=== PATIENT | male | born 1955 | race Caucasian/White ===

== ENCOUNTER 2020-01-29 08:42 | Inpatient (IN) | payer MEDICARE, OTHER ==
[~2020-01-29] VITALS: Ht 182.9 cm; Wt 78.9 kg
[2020-01-29] MEDS ORDERED: SODIUM CHLORIDE 0.9% 1000ML 1,000 ML IV STA ×2 (09:15→09:48)
[2020-01-29 09:40] LABS: BASOPHILS # (AUTO) 0.1 (0.0-0.1); BASOPHILS % 0.2 % (0.0-1.0); HEMATOCRIT 31.6 % (38.2-49.6); HEMOGLOBIN 10.1 g/dL (14.0-18.0); LYMPHOCYTES # (AUTO) 0.8 (1.0-3.2); LYMPHOCYTES % 3.2 % (18.0-39.1); MEAN CORPUSCULAR HEMOGLOBIN 32.1 pg (28-32); MEAN CORPUSCULAR VOLUME 100.3 fL (81-99); MONOCYTES # (AUTO) 0.9 (0.2-0.8); MONOCYTES % 3.8 % (4.4-11.3); NEUTROPHILS # (AUTO) 22.1 (2.1-6.9); NEUTROPHILS % 90.6 % (38.7-80.0); PLATELET COUNT 172 x10e3/uL (140-360); RED BLOOD COUNT 3.15 x10e6/uL (4.3-5.7); RED CELL DISTRIBUTION WIDTH 17.1 % (11.7-14.4)
[2020-01-29] MEDS ORDERED: DEXTROSE 50% SYRINGE 50 ML IV STA (09:41)
[2020-01-29] MEDS ORDERED: DEXTROSE 50% SYRINGE 50 ML IV ONE (09:48)
[2020-01-29] MEDS ORDERED: CEFEPIME HCL 1 GM VIAL IV SCH (10:00)
--- NOTE | 2020-01-29 10:17 | Diagnostic Imaging Report ---
EXAMINATION: CHEST SINGLE (PORTABLE) INDICATION: Fall COMPARISON: None FINDINGS: LINES/TUBES:EKG leads overlie the chest. LUNGS:The lung volumes are low. Bibasilar patchy opacities silhouette the hemidiaphragms. There is perihilar fullness and indistinctness of the pulmonary vasculature. PLEURA:Small bilateral pleural effusions. No pneumothorax. MEDIASTINUM:The heart is enlarged. BONES/SOFT TISSUES:No acute osseous injury. ABDOMEN:No free air under the diaphragm. IMPRESSION: Cardiomegaly, pulmonary interstitial edema, and small bilateral pleural effusions. Bibasilar patchy opacities, more likely subsegmental atelectasis than superimposed aspiration or pneumonia. Signed by: Carol Hillman MD on 01/29/2020 10:13 AM
[2020-01-29 11:05] LABS: ALBUMIN 1.9 g/dL (3.5-5.0); ALBUMIN/GLOBULIN RATIO 0.4 (0.8-2.0); ANION GAP 10.1 mmol/L (8-16); CALCIUM 7.6 mg/dL (8.4-10.2); CREATININE, SERUM 3.67 mg/dL (0.72-1.25)
[2020-01-29 11:06] LABS: POTASSIUM 2.1 mmol/L (3.5-5.1)
[2020-01-29] MEDS ORDERED: CEFEPIME 1GM/NS 0.9% 50 ML 50 ML IV ONE ×2 (11:22→11:30)
[2020-01-29] MEDS ORDERED: POTASSIUM CHLORIDE 10MEQ/100ML 200 ML IV ONE (12:15)
[2020-01-29] MEDS ORDERED: POTASSIUM CHLORIDE 10MEQ EA PO ONE ×2 (12:15→15:30)
--- NOTE | 2020-01-29 12:28 | NUR ---
Spoke with patient's son, Matt Thakur regarding code status. He is currently discussing options with patient's spouse and will discuss options as of right now pt is FULL CODE.
[2020-01-29] MEDS ORDERED: ONDANSETRON HCL INJ 2MG/ML 2ML 2 MG/ML VIAL ONE (12:40)
--- NOTE | 2020-01-29 13:46 | NUR ---
Pt to CT scan first, then will transfer to rm [id number]. Report given to Maritza BROWN.
--- NOTE | 2020-01-29 13:46 | Emergency Department Note ---
History of Present Illnes History of Present Illness Chief Complaint: General Medicine Complaints History of Present Illness This is a 64 year old male arrives to the ED with frequent falls and rib pain. Patient has a history of liver cancer brought in by his son. 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 Any updates have been documented here. Past Medical History Recent Fever: No Clinical Suspicion of Infectio: No New/Unexplained Change in Ment: Yes Past Medical History: Liver Disease Other Surgery: stomach surgery due liver ca Social History Smoking Cessation: Unknown if ever smoked Counseling Performed: Yes Alcohol Use: None Any Illegal Drug Use: No TB Exposure/Symptoms: No Physically hurt or threatened: No Family History Family history of heart diseas: No Other Any Pre-Existing Lines (PICC,: No Is patient up to date on immun: Yes Last Flu: 2019 Last Pneumovax: unknown Review of Systems ROS Narrative Unable to obtain ROS: altered mental status, critical patient Review of Systems Constitutional: Reports as per HPI EENTM: Reports no symptoms Cardiovascular: Reports no symptoms Respiratory: Reports no symptoms, Reports as per HPI Gastrointestinal: Reports no symptoms Genitourinary: Reports as per HPI Musculoskeletal: Reports no symptoms Integumentary: Reports as per HPI Neurological: Reports no symptoms Psychological: Reports no symptoms Endocrine: Reports no symptoms Hematological/Lymphatic: Reports no symptoms Review of other systems: All other systems negative Physical Exam Related Data Allergies: Coded Allergies: No Known Allergies (Unverified , 01/29/20) Triage Vital Signs Vital Signs Date Time Temp Pulse Resp B/P (MAP) Pulse Ox O2 Delivery O2 Flow Rate FiO2 01/29/20 08:50 97.9 71 14 93/38 100 Vital signs reviewed: Yes Physical Exam CONSTITUTIONAL Constitutional: Present well-developed, Present ill appearing HENT HENT: Present normocephalic, Present atraumatic, Present oropharynx clear/moist, Present nose normal HENT L/R: Present left ext ear normal, Present right ext ear normal EYES Eyes: Reports PERRL, Reports conjunctivae normal NECK Neck: Present ROM normal PULMONARY Pulmonary: Present effort normal, Present breath sounds normal CARDIOVASCULAR Cardiovascular: Present regular rhythm, Present heart sounds normal, Present capillary refill normal, Present normal rate GASTROINTESTINAL Abdominal: Present soft, Present bowel sounds normal, Present tender (diffusely tender) GENITOURINARY Genitourinary: Present exam deferred SKIN Skin: Present warm, Present dry MUSCULOSKELETAL Musculoskeletal: Present ROM normal NEUROLOGICAL Neurological: Present alert, Present no gross motor or sensory deficits PSYCHOLOGICAL Psychological: Present mood/affect normal, Present judgement normal Results Laboratory Result Diagram: 01/29/20 0931 01/29/20 1036 Laboratory Laboratory Tests Test 01/29/20 10:50 01/29/20 10:36 01/29/20 10:14 01/29/20 09:31 Lactic Acid Level 1.5 mmol/L (0.5-2.0) Sodium Level 140 mmol/L (136-145) Potassium Level 2.1 mmol/L (3.5-5.1) Chloride Level 109 mmol/L (98-107) Carbon Dioxide Level 23 mmol/L (22-29) Anion Gap 10.1 mmol/L (8-16) Blood Urea Nitrogen 42 mg/dL (7-26) Creatinine 3.67 mg/dL (0.72-1.25) Estimat Glomerular Filtration Rate 17 ML/MIN (60-) BUN/Creatinine Ratio 11 (6-25) Glucose Level 92 mg/dL (74-118) Calcium Level 7.6 mg/dL (8.4-10.2) Total Bilirubin 1.2 mg/dL (0.2-1.2) Aspartate Amino Transf (AST/SGOT) 48 IU/L (5-34) Alanine Aminotransferase (ALT/SGPT) 30 IU/L (0-55) Alkaline Phosphatase 144 IU/L (40-150) Creatine Kinase 484 IU/L (30-200) Total Protein 6.3 g/dL (6.5-8.1) Albumin 1.9 g/dL (3.5-5.0) Globulin 4.4 g/dL (2.3-3.5) Albumin/Globulin Ratio 0.4 (0.8-2.0) Lipase 8 U/L (8-78) Bedside Glucose 86 mg/dL (70-120) White Blood Count 24.38 x10e3/uL (4.8-10.8) Red Blood Count 3.15 x10e6/uL (4.3-5.7) Hemoglobin 10.1 g/dL (14.0-18.0) Hematocrit 31.6 % (38.2-49.6) Mean Corpuscular Volume 100.3 fL (81-99) Mean Corpuscular Hemoglobin 32.1 pg (28-32) Mean Corpuscular Hemoglobin Concent 32.0 g/dL (31-35) Red Cell Distribution Width 17.1 % (11.7-14.4) Platelet Count 172 x10e3/uL (140-360) Neutrophils (%) (Auto) 90.6 % (38.7-80.0) Lymphocytes (%) (Auto) 3.2 % (18.0-39.1) Monocytes (%) (Auto) 3.8 % (4.4-11.3) Eosinophils (%) (Auto) 0.0 % (0.0-6.0) Basophils (%) (Auto) 0.2 % (0.0-1.0) Neutrophils # (Auto) 22.1 (2.1-6.9) Lymphocytes # (Auto) 0.8 (1.0-3.2) Monocytes # (Auto) 0.9 (0.2-0.8) Eosinophils # (Auto) 0.0 (0.0-0.4) Basophils # (Auto) 0.1 (0.0-0.1) Absolute Immature Granulocyte (auto 0.54 x10e3/uL (0-0.1) Creatine Kinase MB 56.30 ng/mL (0-4.3) Troponin I < 0.05 ng/mL (0.0-0.40) Lab results reviewed: Yes Imaging Imaging results reviewed: Yes Impressions IMPRESSION: Cardiomegaly, pulmonary interstitial edema, and small bilateral pleural effusions. Bibasilar patchy opacities, more likely subsegmental atelectasis than superimposed aspiration or pneumonia. Critical Care Time Total Critical Care Time (min): 65 Critical care time exclusive o: separately billable procedures Critcal care necessary due to: shock Assessment & Plan Medical Decision Making MDM Septic Shock Time: 1123 1. Source (time: suspected intra-abdominal 0850) 2. SIRS (time: 948) 93/38 WBC ~25K 3. Organ Dysfunction (time: 1123) CR 3.67- MAG Interventions: Blood cultures collected Lactic acid collected Broad Spectrum antibiotics given @ 1130 completed 1159 Lactic acid #1: 1.5 (time resulted) Lactic acid #2: not indicated 30cc/kg IVF bolus given by IBW ~2L pt markedly emaciated and is 3rd spacing fluid the body weight in EMR is not accurate, pt's true DRY body weight is 140lb or 64kg Bedside volume reassessment done with minimal improvement noted, spoke At Length about Both Care, Considering Possible Hospice/Palliative Care, Hold off on the Levophed at This Time. Son Informed of high likelihood of mortality. Assessment & Plan Final Impression: (1) Septic shock (2) Severe sepsis Depart Disposition: ADMITTED Last Vital Signs Date Time Temp Pulse Resp B/P (MAP) Pulse Ox O2 Delivery O2 Flow Rate FiO2 01/29/20 11:34 75 15 95/41 98 01/29/20 08:50 97.9 Home Meds Reported Medications Everolimus (AFINITOR) 7.5 Mg Tablet, PO DAILY 01/29/20 Torsemide (TORSEMIDE) 20 Mg Tablet, 20 MG PO DAILY 01/29/20 Tamsulosin Hcl* (FLOMAX*) 0.4 Mg Cap, 0.4 MG PO DAILY 01/29/20 Spironolactone (SPIRONOLACTONE) 50 Mg Tablet, 50 MG PO DAILY 01/29/20 Potassium Chloride* (K DUR*) 10 Meq Tabcr, 20 MEQ PO DAILY 01/29/20 Ondansetron Hcl (ONDANSETRON HCL) 4 Mg Tablet, 4 MG PO Q8H 01/29/20 Nifedipine (NIFEDIPINE ER) 30 Mg Tab.er.24, 30 MG PO DAILY 01/29/20 Niacin (NIACIN) 100 Mg Tab, 100 MG PO TID 01/29/20 Levothyroxine Sodium (LEVOTHYROXINE SODIUM) 75 Mcg Tablet, 75 MCG PO DAILY@0600 01/29/20 Hydrocodone Bit/Acetaminophen (HYDROCODON-ACETAMINOPHN 10-325) 1 Each Tablet, 1 TAB PO Q6H PRN for PAIN 01/29/20 Folic Acid/Multivits-Min (50+ POLICE DETENTION ATTENDANT WOMEN MULTIVIT) 0.4 Mg Tablet, 1 MG PO DAILY 01/29/20 Finasteride (FINASTERIDE) 5 Mg Tablet, 5 MG PO DAILY 01/29/20 Ferrous Sulfate (FERROUS SULFATE) 325 Mg Tablet, 325 MG PO DAILY 01/29/20 Medications in the ED Sodium Chloride 1,000 ml @ 0 mls/hr Q0M STAT IV Last administered on 01/29/20at 09:29; Admin Dose 999 MLS/HR; Start 01/29/20 at 09:15; Stop 01/29/20 at 09:19; Status DC Dextrose 50 ml STK-MED ONCE IV ; Start 01/29/20 at 09:48; Stop 01/29/20 at 09:43; Status DC Cefepime HCl 1 gm ONCE IV ; Start 01/29/20 at 10:00; Stop 02/05/20 at 09:59; Status UNV Sodium Chloride 1,000 ml @ 0 mls/hr Q0M STAT IV Last administered on 01/29/20at 10:55; Admin Dose 999 MLS/HR; Start 01/29/20 at 09:48; Stop 01/29/20 at 09:49; Status DC Cefepime HCl 50 ml @ ud STK-MED ONCE IV ; Start 01/29/20 at 11:22; Stop 01/29/20 at 11:16; Status DC Cefepime HCl 50 ml @ 100 mls/hr ONCE ONCE IV Last administered on 01/29/20at 11:26; Admin Dose 100 MLS/HR; Start 01/29/20 at 11:30; Stop 01/29/20 at 11:59; Status DC Dextrose 50 ml NOW STAT IV Last administered on 01/29/20at 09:42; Admin Dose 50 ML; Start 01/29/20 at 09:41; Stop 01/29/20 at 11:59; Status DC Potassium Chloride 200 ml @ 100 mls/hr ONCE ONCE IV Last administered on 01/29/20at 12:44; Admin Dose 100 MLS/HR; Start 01/29/20 at 12:15; Stop 01/29/20 at 14:14 Potassium Chloride 40 meq ONCE ONCE PO ; Start 01/29/20 at 12:15; Stop 01/29/20 at 12:21; Status DC Ondansetron HCl 4 mg STK-MED ONCE .ROUTE ; Start 01/29/20 at 12:40; Stop 01/29/20 at 12:34; Status DC PREETI WADDELL, Jan 29, 2020 13:46
[2020-01-29] MEDS: PIPER-TAZ 3.375 GM 50 ML IV SCH ×2 (14:08→15:13)
--- NOTE | 2020-01-29 14:22 | NUR ---
Spoke with daughter Dionne Guillermo ph:[phone] she reports that patient was supposed to go to [facility] to have fluid drained from his lung today.
--- NOTE | 2020-01-29 14:40 | NUR ---
B checked in CT scan, pt unable to tolerate lying flat. BP: 94/54 HR: 73
--- NOTE | 2020-01-29 15:00 | NUR ---
PT RECEIVED FROM ER. AAOX1. CALL LIGHT WITH IN EASY REACH. BED IS LOW AND LOCKED. SIDE RAILS X2. BED ALARM IS ON. IV POTASSIUM RUNNING WHILE RECEIVING THE PT. PT DENIES NEEDS AT THIS TIME.
--- NOTE | 2020-01-29 15:15 | NUR ---
PT LEFT UPPER BACK SWOLLEN. PER ER NURSE PT SUPPOSED TO HAVE OUTPATIENT THORACENTESIS TODAY. PAGED PILI TAI AND INFORMED THE SAME.
[2020-01-29 16:00] VITALS: BP_SYST 102; BP_SYST 131; BP_DIAS 101; BP_DIAS 53
[2020-01-29] MEDS ORDERED: LEVOTHYROXINE75 MCG PO (16:41)
[2020-01-29] MEDS ORDERED: SPIRONOLACTONE50 MG PO (16:41)
[2020-01-29] MEDS ORDERED: HYDROCODON-ACE1 EAC9 PO (16:41)
[2020-01-29] MEDS ORDERED: FLOMAX0.4 MG PO (16:41)
[2020-01-29] MEDS ORDERED: NIACIN100 MG PO (16:41)
[2020-01-29] MEDS ORDERED: TORSEMIDE20 MG PO (16:41)
[2020-01-29] MEDS ORDERED: FERROUS SULFAT325 MG PO (16:41)
[2020-01-29] MEDS ORDERED: 50+ COMPANION0.4 MG PO (16:41)
[2020-01-29] MEDS ORDERED: NIFEDIPINE ER30 M1 PO (16:41)
[2020-01-29] MEDS ORDERED: FINASTERIDE5 MG PO (16:41)
[2020-01-29] MEDS ORDERED: ONDANSETRON HCL4 MG PO (16:41)
[2020-01-29] MEDS ORDERED: K DUR10 MEQ PO (16:41)
[2020-01-29] MEDS ORDERED: AFINITOR PO (16:43)
--- NOTE | 2020-01-29 16:44 | NUR ---
PT IS POOR HISTORIAN. PAGED PT FAMILY REGARDING HOME MEDS. PT HOME MEDS READ BACK AND VERIFIED WITH ELDON JOSEPH AND DAUGHTER MIRYAM.
[2020-01-29 16:45] VITALS: BP 131/101
--- NOTE | 2020-01-29 17:01 | NUR ---
PT K LEVEL 2.1 . K DUR GIVEN AND IV POTASSIUM COMPLETED. KENDALL ALEJANDRE ENGINEERING MGR AND INFORMED PT K LEVEL.
[2020-01-29] MEDS ORDERED: ONDANSETRON HCL INJ 2MG/ML 2ML 2 MG/ML VIAL IV PRN (17:30)
[2020-01-29] MEDS ORDERED: ACETAMINOPHEN 325 MG TAB PO PRN (17:30)
[2020-01-29] MEDS ORDERED: HYDRALAZINE HCL 20 MG/ML VIAL IV PRN (17:30)
[2020-01-29] MEDS ORDERED: HYDROCODONE/APAP 10MG-325MG TAB PO PRN (17:30)
[2020-01-29] MEDS ORDERED: D5NS/KCL 20MEQ 1,000 ML IV SCH (18:00)
[2020-01-29] MEDS ORDERED: POTASSIUM CHLORIDE 20MEQ/100ML 300 ML IV ONE (18:00)
--- NOTE | 2020-01-29 18:10 | NUR ---
PT BP LOW. 78/47. INFORMED THE SAME TO IPLI TAI.
--- NOTE | 2020-01-29 18:16 | NUR ---
PT OFF TO RADIOLOGY FOR CT IN SAFE CONDITION.
--- NOTE | 2020-01-29 18:41 | NUR ---
PT IS BACK TO UNIT AFTER CT. PT DENIES NEEDS AT THIS TIME.
--- NOTE | 2020-01-29 18:51 | Diagnostic Imaging Report ---
CT BRAIN WO HISTORY: Fall COMPARISON: None. TECHNIQUE: Noncontrast axial scans were obtained from skull base to the vertex. Coronal and sagittal reconstructions obtained from the axial data. One or more of the following dose reduction techniques were used: Automated exposure control, adjustment of the mA and/or kV according to patient size, and/or utilization of iterative reconstruction technique. Motion and beam hardening artifacts obscure some details. DISCUSSION: Scalp/Skull: Unremarkable. Brain sulci: Appropriate for patient's age. Ventricles: Normal in size and configuration. No hydrocephalus. Extra-axial spaces: No masses or fluid collections. Mild carotid siphon calcifications are present. Parenchyma: Mild periventricular white matter hypodensities are likely chronic microvascular ischemic changes. Otherwise, no mass, hemorrhage, or large vascular territory acute infarct. Dural sinuses: No abnormal densities. Sellar/Suprasellar region: Intact. Skull base: Intact. Incidental findings: Mild sclerosis of the left maxillary sinus dickson may be from remote/chronic inflammation. Trace right mastoid effusion. IMPRESSION: 1. No acute intracranial abnormalities. 2. Mild supratentorial chronic microvascular ischemic change. Signed by: Dr. Igor Allen M.D. on 01/29/2020 6:48 PM
--- NOTE | 2020-01-29 19:00 | NUR ---
BEDSIDE SHIFT REPORT GIVEN TO THE VENEER REDRIER RN. PT DENIED FURTHER NEEDS.
--- NOTE | 2020-01-29 19:00 | NUR ---
RECEIVED PATIENT IN BEDSIDE SHIFT REPORT. PATIENT A&OX2. O2@2L, PATIENT KEEPS REMOVING NC, REPLACED. LUNG SOUNDS DIMINISHED. IV RUNNING TO BILATERAL UPPER ARMS, ASYMPTOMATIC. SKIN OVER ENTIRE BODY TIGHT, +4 PITTING EDEMA NOTED TO ALL EXTREMITIES. WILL BE MOVING PATIENT TO ROOM CLOSER TO NURSES STATION FOR SAFETY. BED LOCKED IN LOWEST POSITION, SIDE RAILS UPX2, CALL LIGHT IN REACH.
--- NOTE | 2020-01-29 19:12 | Diagnostic Imaging Report ---
EXAM: CT Chest WITHOUT contrast INDICATION: r/o PNA COMPARISON: None TECHNIQUE: Chest was scanned utilizing a multidetector helical scanner from the lung apex through the level of the adrenal glands without administration of IV contrast. Absence of intravenous contrast decreases sensitivity for detection of lymphadenopathy and vascular pathology. Coronal and sagittal reformations were obtained. Routine protocol was performed. IV CONTRAST: None COMPLICATIONS: None RADIATION DOSE: Total DLP: 2073.08 mGy*cm Estimated effective dose: (DLP x 0.014 x size factor) mSv CTDIvol has been reviewed. It is below the limits set by the Radiation Protocol Committee (RPC). FINDINGS: The study is markedly degraded by streak artifact by patient's hand. LINES/ TUBES: None. LUNGS, AIRWAYS, PLEURA: There are large bilateral pleural effusions with complete atelectasis of the lower lobes. Patchy groundglass opacities are seen in the right upper and mid lobes and to a lesser extent left upper lobe could be infectious or atelectatic. HEART AND MEDIASTINUM: The thyroid gland is normal. Multiple prominent mediastinal and hilar lymph nodes are likely reactive. No axillary lymphadenopathy. The heart is mildly enlarged.. There is no pericardial effusion. HEPATOBILIARY: Evaluation is markedly limited by streak artifact GALLBLADDER: Evaluation is markedly limited by streak artifact SPLEEN: Evaluation is markedly limited by streak artifact PANCREAS: Evaluation is markedly limited by streak artifact ADRENALS: The adrenal glands are unremarkable. KIDNEYS/URETERS: No hydronephrosis or large mass. No stones. GI TRACT: No obstruction PELVIC ORGANS/BLADDER: The bladder is unremarkable. LYMPH NODES: No lymphadenopathy. VESSELS: Vessels are incompletely evaluated due to lack of IV contrast. However no definite aneurysm seen. PERITONEUM / RETROPERITONEUM: Small volume of ascites. BONES: There are degenerative changes in the spine. SOFT TISSUES: There are small bilateral inguinal hernias. There is diffuse anarsarca. There are small fat and fluid containing bilateral inguinal hernias. There is a small bowel containing left para-umbilical hernia. IMPRESSION: 1. Large bilateral pleural effusions with complete atelectasis of the lower lobes. 2. Mild patchy groundglass opacities bilaterally could be infectious or atelectatic. 3. Small bowel containing left para-umbilical hernia. No evidence of bowel obstruction. 4. Small fat and fluid containing bilateral inguinal hernias. 5. Markedly limited evaluation of the upper abdomen due to streak artifact by patient's hand. If clinical suspicion for upper abdominal pathology persists recommend repeat exam or abdominal ultrasound. Signed by: Garfield Stewart MD on 01/29/2020 7:08 PM
[2020-01-29 20:00] VITALS: BP 78/47
--- NOTE | 2020-01-29 20:14 | NUR ---
RAPID RESPONSE CALLED AT THIS TIME D/T VERY LOW BLOOD PRESSURE, 53/23 THEN 82/37, WITH MAP OF 52. MD GILBERT AND VARIOUS STAFF RESPONDED. PATIENT RESPONSIVE THROUGHOUT. LEVOPHED ORDERED, WITH ORDERS TO TRANSFER TO ICU. MD Twin RIVERA CALLED TO PLACE CENTRAL LINE. STEPHANIE VILLEDA AT BEDSIDE TO MANAGE LEVO THROUGHOUT CONCRETE STONE FINISHING SUPERVISOR AND UNTIL TRANSFER TO ICU. PATIENT NOT ORIENTED, BEGGING FOR "BIRTHDAY CAKE." REPORT CALLED TO [facility]. PATIENT TRANSPORTED WITH STABLE VITALS WITH STEPHANIE MCCORMACK.
[2020-01-29] MEDS ORDERED: SODIUM CHLORIDE 0.9% 1000ML 1,000 ML ONE (20:21)
[2020-01-29 20:41] LABS: BASOPHILS # (AUTO) 0.1 (0.0-0.1); BASOPHILS % 0.4 % (0.0-1.0); HEMOGLOBIN 10.8 g/dL (14.0-18.0); LYMPHOCYTES # (AUTO) 0.7 (1.0-3.2); LYMPHOCYTES % 2.3 % (18.0-39.1); MEAN CORPUSCULAR HEMOGLOBIN 32.3 pg (28-32); MEAN CORPUSCULAR HGB CONC 31.8 g/dL (31-35); MEAN CORPUSCULAR VOLUME 101.8 fL (81-99); MONOCYTES # (AUTO) 1.1 (0.2-0.8); MONOCYTES % 3.6 % (4.4-11.3); NEUTROPHILS # (AUTO) 27.3 (2.1-6.9); NEUTROPHILS % 92.3 % (38.7-80.0); PLATELET COUNT 161 x10e3/uL (140-360); RED BLOOD COUNT 3.34 x10e6/uL (4.3-5.7); RED CELL DISTRIBUTION WIDTH 17.1 % (11.7-14.4)
[2020-01-29 20:53] LABS: ALBUMIN 1.8 g/dL (3.5-5.0); ALBUMIN/GLOBULIN RATIO 0.4 (0.8-2.0); ANION GAP 12.6 mmol/L (8-16); CALCIUM 7.7 mg/dL (8.4-10.2); CREATININE, SERUM 3.73 mg/dL (0.72-1.25)
[2020-01-29 20:56] LABS: POTASSIUM 2.6 mmol/L (3.5-5.1)
[2020-01-29] MEDS ORDERED: VANCOMYCIN 1GM/NS 250 ML 250 ML IV ONE (21:00)
[2020-01-29] MEDS ORDERED: LIDOCAINE HCL 1% LOCAL INJ 20 ML VIAL ONE (21:25)
[2020-01-29] MEDS ORDERED: ALBUMIN 25% 25GM 100ML 0.25 GM/ML BTL IV ONE (21:30)
[2020-01-29] MEDS ORDERED: LORAZEPAM INJ 2 MG/ML VIAL IV ONE (21:30)
[2020-01-29] MEDS ORDERED: PROMETHAZINE 12.5MG/ NACL 0.9% 12.5 MG/50 ML BAG IV ONE (21:30)
[2020-01-29] MEDS ORDERED: PROMETHAZINE 12.5MG/ NACL 0.9% 50 ML IV ONE (21:30)
[2020-01-29] MEDS ORDERED: ALBUMIN 25% 25GM 100ML 100 ML IV ONE (21:45)
[2020-01-29 22:19] LABS: CREATINE KINASE MB 14.2 ng/mL (0-5.0)
[2020-01-29 22:36] VITALS: BP 76/48
[2020-01-29] MEDS ORDERED: ALBUMIN 25% 12.5GM 50ML 50 ML IV ONE (22:47)
--- NOTE | 2020-01-29 22:56 | Operative Report ---
DATE OF PROCEDURE: SURGEON: Homero Shields MD PROCEDURE: Central line placement under ultrasound guidance. PREOPERATIVE DIAGNOSIS: Acute renal failure. POSTOPERATIVE DIAGNOSIS: Acute renal failure. CONSENT: Consent was obtained from the son, [place] Thakur. MEDICATIONS: 1% lidocaine for local anesthesia. DESCRIPTION OF PROCEDURE: The patient was placed in a supine position. The right neck was prepped sterilely with chlorhexidine. A full length sterile drape, sterile gown, sterile gloves, and mask were used. An ultrasound machine was used to visualize the right internal jugular vein. Skin was anesthetized with lidocaine. The vein was cannulated under direct visualization with a 16-gauge needle. A wire was then passed through the needle. A dilator was used to open the skin and a triple-lumen catheter was passed over the wire by the Seldinger technique. All the ports flushed. COMPLICATIONS: None. ESTIMATED BLOOD LOSS: None. Homero Shields MD [facility] /[id number]
[2020-01-29 23:00] VITALS: BP 82/68
--- NOTE | 2020-01-29 23:06 | Consultation ---
DATE OF CONSULTATION: Pulmonary Critical Care Consultation CHIEF COMPLAINT: Low blood pressure, peripheral edema and leukocytosis. HISTORY OF PRESENT ILLNESS: The patient is a 64-year-old man. He has a vague history of liver cancer that required a laparotomy with a liver resection. He also has a history of cirrhosis and liver disease. He has some baseline renal insufficiency. He was scheduled to go for outpatient thoracentesis today, but was too sick. He came to the emergency department with disorientation and worsening and swelling in his legs. Upon evaluation, he was found to have a leukocytosis. He was started on antibiotics. He also received intravenous fluids. Further laboratory analysis showed an elevated creatinine with a potassium of 2.1. He has received some potassium. His repeat potassium is 2.6. After being admitted to the Medr unit, he became hypotensive. Levophed was started peripherally at 5 mcg. PAST SURGICAL HISTORY: 1. Status post laparotomy with partial liver resection. 2. History of hernia repairs. PAST MEDICAL HISTORY: 1. Cirrhosis. 2. Hypertension. 3. Hypothyroidism. 4. Prostatic hypertrophy. ALLERGIES: THE PATIENT HAS NO KNOWN DRUG ALLERGIES. SOCIAL HISTORY: The patient's smoking and drinking history is not known at this time. FAMILY HISTORY: Noncontributory. REVIEW OF SYSTEMS: There is no history of fevers. He has no headache. He does have some disorientation. He has no neck pain or chest pain. He is not complaining of dyspnea. He does not complain of abdominal pain. There is no nausea or vomiting. He has severe chronic appearing leg edema. He is disoriented, but has no focal neurological complaints. PHYSICAL EXAMINATION: VITAL SIGNS: The blood pressure is now 110/70, on 5 mcg of Levophed. The pulse is 68, respiratory rate is 16. He is saturating 92% on 3 L. HEENT: Shows no facial swelling or erythema. CARDIAC: Reveals regular rate and rhythm with normal S1, S2. LUNGS: Auscultation of lungs shows decreased breath sounds at the bases. There is no wheezing. ABDOMEN: Soft nontender. There is no rebound or guarding. EXTREMITIES: Shows 3 to 4+ leg edema. There are skin changes consistent with chronic venous stasis. NEUROLOGICAL: Shows some confusion, disorientation. There were no focal findings. LABORATORY DATA: White blood cell count is 29.6 and the hemoglobin is 10.8. The platelet count is 161. The BUN to creatinine ratio is 43 to 3.73. The potassium is 2.6, and the carbon dioxide is 20. The total bilirubin is 1.3, and the albumin is 1.8. RADIOGRAPHIC DATA: CT scan of the brain shows no acute disease. CT scan of the abdomen and pelvis shows large bilateral pleural effusions with compressive atelectasis of the lower lobes. There are patchy ground-glass opacities bilaterally. The patient also has a paraumbilical hernia. There are no masses or lesions seen. IMPRESSION: 1. Cirrhosis with portal hypertension and peripheral edema. 2. Acute on chronic renal failure. 3. Hypoalbuminemia. 4. Leukocytosis with sepsis of unclear source, present on admission. 5. Anemia, unspecified. 6. Metabolic encephalopathy. PLAN: 1. The patient will receive broad-spectrum antibiotics. 2. The patient has completed of fluid bolus. 3. Albumin x1. 4. Attempt to wean Levophed. 5. Check ammonia level. 6. Continue to replace potassium. 7. Nephrology consultation. 8. Prognosis is poor. Homero Shields MD [facility] /[id number]
[2020-01-29] MEDS: MEROPENEM 1GM 100 ML IV SCH (23:21)
--- NOTE | 2020-01-29 23:33 | Diagnostic Imaging Report ---
Examination: Single AP view of the chest. COMPARISON: Portable chest 01/29/2020 INDICATION: Line placement IMPRESSION: 1. Lines and Tubes: Interval placement of right-sided IJ line, with distal tip projecting in the distal SVC/cavoatrial junction.. 2. No interval change in enlarged cardiac silhouette, interstitial pulmonary edema and bilateral pleural effusions. Signed by: Dr. Austin Fontanez M.D. on 01/29/2020 11:29 PM
--- NOTE | 2020-01-29 23:47 | NUR ---
RECEIVED FROM [facility] AT 2236. WITHDRAWS TO PAIN, NO SPEECH ONLY MOANS. ATTEMPTED X [address] ROLLE CATHETER WITHOUT SUCCESS, ATTEMPTED TO PLACE COUDE CATHETER WITHOUT SUCCESS.
[2020-01-29 23:50] VITALS: BP 82/68
[2020-01-30] VITALS (24 sets, daily range): BP systolic 67–153; BP diastolic 25–96
[2020-01-30 00:35] LABS: INR 1.85; PROTHROMBIN TIME 22.7 seconds (11.9-14.5)
[2020-01-30] MEDS ORDERED: MIDAZOLAM HCL 5MG/ML 10ML VIAL 100 ML IV ONE (03:24)
[2020-01-30] MEDS ORDERED: SODIUM BICARBONATE 8.4% INJ 50 ML SYR IV STA (03:47)
--- NOTE | 2020-01-30 03:47 | Diagnostic Imaging Report ---
Examination: Single AP view of the chest. COMPARISON: AP chest 01/29/2020 INDICATION: Status post ET tube placement IMPRESSION: 1. Lines and Tubes: Interval placement of endotracheal tube which has its distal tip projecting approximately 3.8 cm above the krys. Right-sided central line is stable. 2. Otherwise no significant interval change since the prior exam. Signed by: Dr. Austin Fontanez M.D. on 01/30/2020 3:44 AM
[2020-01-30] MEDS ORDERED: ALBUMIN 25% 12.5GM 0.25 GM/ML BTL IV ONE (04:00)
[2020-01-30] MEDS ORDERED: POTASSIUM CHLORIDE 20MEQ/100ML 100 ML IV ONE (04:00)
[2020-01-30] MEDS ORDERED: NOREPINEPHRINE 8 MG/D5W 250 ML 250 ML ONE (04:40)
[2020-01-30 05:09] LABS: BASOPHILS # (AUTO) 0.1 (0.0-0.1); BASOPHILS % 0.3 % (0.0-1.0); HEMATOCRIT 35.2 % (38.2-49.6); HEMOGLOBIN 11.2 g/dL (14.0-18.0); LYMPHOCYTES # (AUTO) 0.7 (1.0-3.2); LYMPHOCYTES % 2.7 % (18.0-39.1); MEAN CORPUSCULAR HEMOGLOBIN 32.7 pg (28-32); MEAN CORPUSCULAR HGB CONC 31.8 g/dL (31-35); MEAN CORPUSCULAR VOLUME 102.9 fL (81-99); MONOCYTES # (AUTO) 0.7 (0.2-0.8); MONOCYTES % 2.7 % (4.4-11.3); NEUTROPHILS # (AUTO) 23.6 (2.1-6.9); NEUTROPHILS % 93.4 % (38.7-80.0); PLATELET COUNT 160 x10e3/uL (140-360); RED BLOOD COUNT 3.42 x10e6/uL (4.3-5.7); RED CELL DISTRIBUTION WIDTH 17.1 % (11.7-14.4)
[2020-01-30 05:20] LABS: INR 1.75; PROTHROMBIN TIME 21.7 seconds (11.9-14.5)
[2020-01-30 05:21] LABS: PARTIAL THROMBOPLASTIN TIME 57.7 seconds (23.8-35.5)
[2020-01-30] MEDS: LEVOTHYROXINE SODIUM 75 MCG TAB PO SCH (05:24)
[2020-01-30 05:28] LABS: ALBUMIN 2.4 g/dL (3.5-5.0); ALBUMIN/GLOBULIN RATIO 0.5 (0.8-2.0); ANION GAP 12.8 mmol/L (8-16); CALCIUM 7.8 mg/dL (8.4-10.2); CREATININE, SERUM 3.94 mg/dL (0.72-1.25)
[2020-01-30 05:30] LABS: POTASSIUM 2.8 mmol/L (3.5-5.1)
[2020-01-30] MEDS: MEROPENEM 1GM 100 ML IV SCH ×2 (05:33→13:20)
[2020-01-30 05:35] LABS: CREATINE KINASE MB 8.5 ng/mL (0-5.0)
--- NOTE | 2020-01-30 06:31 | NUR ---
PATIENT INCONTINENT OF URINE, BLADDER SCANNER STILL SHOWS 341 ML, CONSULT CALLED FOR DR PARIKH
[2020-01-30] MEDS ORDERED: NOREPINEPHRINE 8 MG/D5W 250 ML 250 ML IV SCH (07:30)
[2020-01-30] MEDS ORDERED: OCTREOTIDE ACETATE SQ SCH (08:30)
[2020-01-30] MEDS ORDERED: POTASSIUM CHLORIDE 20MEQ/100ML 200 ML IV ONE (08:30)
[2020-01-30] MEDS ORDERED: SODIUM CHLORIDE 0.9% SQ SCH (08:30)
[2020-01-30] MEDS ORDERED: FAMOTIDINE 20 MG/2 ML VIAL IV SCH (09:00)
[2020-01-30] MEDS ORDERED: SPIRONOLACTONE 25 MG TAB PO SCH (09:00)
[2020-01-30] MEDS: POTASSIUM CHLORIDE 10MEQ EA PO SCH (09:00)
[2020-01-30] MEDS: TAMSULOSIN HCL 0.4 MG CAP PO SCH (09:00)
[2020-01-30] MEDS ORDERED: NIFEDIPINE CR 30 MG TAB PO SCH (09:00)
[2020-01-30] MEDS: FINASTERIDE 5 MG TAB PO SCH (09:00)
[2020-01-30] MEDS ORDERED: TORSEMIDE 10 MG TAB PO SCH (09:00)
[2020-01-30] MEDS: OCTREOTIDE ACETATE 0.1 MG/ML 100MCG AMP SQ SCH ×2 (10:43→18:18)
--- NOTE | 2020-01-30 10:43 | Consultation ---
DATE OF CONSULTATION: 01/30/2020 Renal Consultation. REASON FOR CONSULTATION: Acute kidney injury, hypokalemia. HISTORY OF PRESENT ILLNESS: A 64-year-old male with history of cirrhosis and hypertension, who presented to [facility] for outpatient thoracentesis. When the patient arrived, he was apparently disoriented with increased swelling and was sent to the emergency room. The patient is unable to give any further history as he is currently intubated. The patient's blood pressure in the emergency room was 53/23 with a heart rate of 69. They were unable to get his temperature. The patient was started on Levophed and was to be transferred to the ICU. His blood pressure was noted to increase to 82/37. The patient had a code blue. ACLS protocol was followed and the patient was resuscitated. He was noted to have hypokalemia, worsening kidney function and Nephrology consultation was called. The patient apparently has some baseline chronic kidney disease, unclear his baseline. REVIEW OF SYSTEMS: Unable to obtain. PAST MEDICAL HISTORY: 1. Cirrhosis. 2. Hypertension. 3. Hypothyroidism. 4. BPH. 5. Chronic kidney disease, unknown baseline. PAST SURGICAL HISTORY: 1. Laparotomy with partial level resection. 2. History of hernia repair. SOCIAL HISTORY: Unknown tobacco or alcohol. FAMILY HISTORY: Noncontributory. ALLERGIES: NO KNOWN DRUG ALLERGIES. CURRENT MEDICATIONS: 1. Levophed. 2. Spironolactone. 3. Flomax. 4. Potassium. 5. Finasteride. 6. Hydralazine. 7. Meropenem. PHYSICAL EXAMINATION: VITAL SIGNS: Blood pressure 126/78, pulse 85, respiratory rate 20, temperature 97.8. GENERAL: No apparent distress. HEENT: Intubated. No periorbital edema. NECK: Supple. Difficult to assess jugular venous pressure. No lymphadenopathy. CHEST: Rhonchi anteriorly bilaterally. CARDIOVASCULAR: Regular rate and rhythm. No murmurs or rubs. ABDOMEN: Soft, distended. Surgical scar. EXTREMITIES: 3+ pitting edema. No clubbing. No cyanosis. : No Narvaez. IMAGING: Chest x-ray, cardiomegaly, pulmonary interstitial edema. Small bilateral pleural effusions. CT abdomen and pelvis, large bilateral pleural effusions with complete atelectasis of the lower lobes. Patchy ground-glass opacities are seen in the right upper lobe. No hydronephrosis or large mass. Small bowel containing left paraumbilical hernia. No evidence of bowel obstruction. CT of the chest reviewed. CT of the brain, no acute intracranial abnormalities. LABORATORY DATA: Sodium 141, potassium 2.8, chloride 110, CO2 21, BUN 45, creatinine 3.94, calcium 7.8, total bilirubin 1.6, CK 630, albumin 2.4, white count 2500, hemoglobin 11.2, hematocrit 35.2, platelets 160. Serologies: Coronavirus negative. ASSESSMENT AND PLAN: 1. Acute kidney injury on chronic kidney disease. The patient with unknown baseline, suspected either acute tubular necrosis due to sepsis or hepatorenal syndrome. The patient is at high risk for needing renal replacement therapy at this time. We will refrain from giving Lasix. Give albumin and octreotide. Check urine studies. Await for Narvaez catheter placement and re-evaluate for Lasix. 2. Hypokalemia. We will replace. Continue spironolactone for now, repeat this afternoon. 3. Anasarca. We will give albumin. Hold on Lasix at this time. 4. Respiratory failure per Pulmonary Critical Care. The patient with bilateral pleural effusions. May need thoracentesis. 5. Shock, on pressors with broad-spectrum antibiotics. 6. Urology consulted to place Narvaez catheter. The patient is critically ill. His prognosis is poor. MD MAL Teran/MODL /[id number]
[2020-01-30] MEDS ORDERED: SODIUM CHLORIDE 0.9% 500ML 500 ML ONE (10:53)
[2020-01-30 11:26] LABS: LYMPHOCYTES % (MANUAL) 4 % (19-48); MONOCYTES % (MANUAL) 3 % (3.4-9.0); NEUTROPHILS % (MANUAL) 93 % (40-74); PLATELET ESTIMATE ADEQUATE; PLATELET MORPHOLOGY COMMENT NORMAL; RBC MORPHOLOGY COMMENT NORMAL
[2020-01-30] MEDS: ALBUMIN 25% 25GM 100ML 100 ML IV SCH ×2 (13:18→18:18)
[2020-01-30] MEDS ORDERED: ALBUMIN 25% 25GM 100ML 0.25 GM/ML BTL IV SCH (14:00)
[2020-01-30] MEDS ORDERED: VANCOMYCIN 1GM/NS 250 ML 250 ML IV ONE ×2 (14:45→18:45)
--- NOTE | 2020-01-30 16:10 | Consultation ---
DATE OF CONSULTATION: REASON FOR CONSULTATION: Sepsis with septic shock. The patient is seen and examined. Chart reviewed. HISTORY OF PRESENT ILLNESS: This is a 64-year-old white male, who has history of liver cancer apparently still on chemotherapy, history of laparotomy, liver resection, liver cirrhosis, liver disease, and chronic kidney disease. He was scheduled to get thoracocentesis for pleural effusion, but apparently the patient got progressively worse, came here. He is intubated currently, on vasopressors, hypothermic. I was asked to see him urgently. The patient is seen and examined. Discussed with the medical team. I also called the family. The patient, who does not provide any meaningful information. History was taken mainly from the chart. PAST MEDICAL HISTORY: As above. PAST SURGICAL HISTORY: As above, laparotomy, partial liver resection, and hernia repair. SOCIAL HISTORY: There is no smoking, drug abuse, or alcohol abuse. FAMILY HISTORY: Otherwise noncontributory. REVIEW OF SYSTEMS: Could not be obtained. LABORATORY DATA: His white count is 25,000, hemoglobin 11.2, hematocrit 35. His sodium is 141, potassium 2.8 with a glucose of 111. Liver enzyme, AST is 64. PHYSICAL EXAMINATION: GENERAL: He is currently noncommunicative, intubated. VITAL SIGNS: Stable. Currently afebrile, but hypothermic. HEENT: Not icteric. NECK: Supple. CHEST: Few crackles bilateral. COR: S1 and S2. ABDOMEN: Soft. MEDICATIONS: The patient received doses of Zosyn, then meropenem. His medication list reviewed. IMPRESSION: 1. Sepsis with septic shock, present on admission. 2. Multiorgan failure; liver failure, kidney failure, and acute respiratory failure. 3. Liver cancer. Agree with meropenem. We will give 1 g of vancomycin. Discussed with the family. Prognosis is extremely poor. Continue supportive care. We discussed even possibility of DNR. Discussed with medical team. MD MAKI Ruiz/NYLA /[id number]
--- NOTE | 2020-01-30 16:37 | Diagnostic Imaging Report ---
EXAM: US ABDOMEN COMPLETE DATE: 01/30/2020 3:21 PM INDICATION: Ascites, hepatic malignancy COMPARISON: CT abdomen pelvis of 01/29/2020 TECHNIQUE: Transverse and longitudinal regalado scale and color doppler sonographic images of the upper abdomen were obtained. FINDINGS: LIVER 14.4 cm in the right midclavicular line. Diffusely heterogeneous and coarse echotexture. Numerous hypodense lesions throughout the visualized liver. Cirrhotic hepatic surface contour. SPLEEN 10.0 cm in maximum diameter. Normal echogenicity, no masses. GALLBLADDER Not visualized. BILE DUCTS No intra nor extra-hepatic biliary dilation. Common bile duct measures 3mm PANCREAS: Visualized portions are normal. RIGHT KIDNEY: 9.6 cm Echogenicity: Normal Collecting System: No hydronephrosis Stones: None Cyst/Mass: None LEFT KIDNEY: 9.5 cm Echogenicity: Normal Collecting System: No hydronephrosis Stones: None Cyst/Mass: Mid pole 2.3 cm anechoic simple cyst. VESSELS: Aorta: Visualized portions are within normal size limits Inferior Vena Cava: Visualized portions are normal Main Portal Vein: 0.7 cm, normal size with hepatopetal flow. FREE FLUID: Small volume ascites. IMPRESSION: Diffusely coarse and heterogeneous hepatic echotexture with numerous apparent hypodense lesions throughout the liver. In the setting of cirrhosis, findings are concerning for hepatic malignancy. Nonvisualization of the gallbladder. Small volume ascites. Signed by: Carol Hillman MD on 01/30/2020 4:33 PM
--- NOTE | 2020-01-30 17:10 | Progress Note ---
DATE: Pulmonary Critical Care Progress Note. SUBJECTIVE: The patient required intubation early this morning. He is now on a PRVC mode of ventilation. Urology placed a Narvaez catheter with a cystoscope. Despite this, he still has no urine output over several hours. His blood pressure is worsening and his Levophed was increased to 28. He is being continued on antibiotics. PHYSICAL EXAMINATION: VITAL SIGNS: Blood pressure is 110/35 with a MAP of 60. The patient is on Levophed at 28 mcg. Temperature is 93.4. The pulse is 92. He is saturating 100% on a PRVC mode of ventilation. He is also received albumin. He is off versed. HEENT: There is oral endotracheal tube in place. He has a right IJ line in place. The site looks clean. CARDIAC: Reveals regular rate and rhythm with normal S1, S2. LUNGS: Auscultation of lungs shows decreased breath sounds at the bases. There is no wheezing. ABDOMEN: Soft and nontender. There is no rebound or guarding. EXTREMITIES: Shows no leg edema or calf tenderness. Shows 3 to 4+ pitting edema in the lower extremities. NEUROLOGICAL: Shows the patient to be obtunded, even off sedation. LABORATORY DATA: BUN to creatinine ratio is increased to 45/3.94 and the carbon dioxide is 21. The potassium is 2.8. The total bilirubin is 1.6, and ammonia level is 146. Albumin is 2.4. The patient has some coagulopathy as well with a PT of 21.7. RADIOGRAPHIC DATA: Shows bilateral pleural effusions, right greater than left. IMPRESSION: 1. Acute respiratory failure. 2. Septic shock with unclear source, present on admission. 3. Cirrhosis with portal hypertension. 4. Hepatorenal syndrome type 1 with no urine output. 5. Hepatic encephalopathy. 6. Coagulopathy secondary to liver disease. PLAN: 1. The family is aware of the poor prognosis and have opted for a DNR. They do not want CPR or defibrillation. 2. Continue mechanical ventilation and Levophed for now. 3. Continue current antibiotics. 4. Hold off on thoracentesis for now until the family has decided if they want any further invasive procedures. 5. Hold off on dialysis for now, nephrology is continuing to follow the patient. 6. Case discussed with nightshift nursing, dayshift nursing, Respiratory, Dr. Ramirez of Internal Medicine, Dr. Merszei of Nephrology, Infectious Disease, and family. 7. Greater than 35 minutes in direct critical care time. MD NEELAM Santana/NYLA /[id number]
[2020-01-30] MEDS ORDERED: DEXTROSE 5% IV PRN (18:45)
[2020-01-30] MEDS ORDERED: VASOPRESSIN IV PRN (18:45)
--- NOTE | 2020-01-30 19:28 | NUR ---
Progress note by nursing Patient made DNR today. Multiple discussions and updates between medical team and patient's family today with industrial methods consultant physicians offering their updates, prognosis and answering questions extensively. GCS:3, off Versed drip since noon without improvement in neuro exam. Orally intubated. Large left pneumo. Holding off on CT placement (and FFP reserved for the procedure) per Dr. Shields. Saturating well on current settings. SR, requiring high dose Levo. Vaso is to be added to maintain Map of 60 and above if Levo is maxed at 30. NPO, no BMs Narvaez catheter was placed by Urology with great difficulty. Patient is not producing any urine currently. Weeping edema is generalized. Fragile skin all over body. Mepilex applied to sacrum and patient reposition with wedges q2. Afebrile, Vanc 1gX1 added to the regimen (a;ready on Merrem). Low K after 40K IV (2.9). Per discussion with Dr. Shields, will hold off any replacement in setting of worsening kidney function.
--- NOTE | 2020-01-30 21:07 | Consultation ---
DATE OF CONSULTATION: Cardiology Consult HISTORY OF PRESENT ILLNESS: A 64-year-old male with a primary history of hypertension and liver disease, presented to the [facility] for supposedly outpatient thoracentesis. However, when he arrived at the emergency room, the patient noted to be disoriented with generalized edema/swelling, and the patient became hypotensive with blood pressure of 53/23 and a heart rate in the 60s and continuously deteriorate, ACLS protocol eventually initiated and the patient was admitted to the ICU and is currently intubated and on the norepinephrine drip. PAST MEDICAL HISTORY: Hypertension, hypothyroidism, BPH, chronic kidney disease, and liver cirrhosis. PAST SURGICAL HISTORY: Laparotomy, partial liver resection, and history of hernia repair. SOCIAL HISTORY: No known tobacco or alcohol use. FAMILY HISTORY: Noncontributory. ALLERGIES: NO KNOWN DRUG ALLERGIES. CURRENT MEDICATIONS: The patient is on levothyroxine 75 mcg p.o. daily, finasteride 5 mg p.o. daily, famotidine 20 mg b.i.d., norepinephrine drip, also on 10 mg of hydralazine every 4 hours p.r.n., meropenem 1 g daily, and spironolactone. PHYSICAL EXAMINATION: VITAL SIGNS: This morning, blood pressure 116/55, respiratory rate of 18, pulse is 93, temperature is 97.8, 99% oxygen saturation. GENERAL: No apparent respiratory distress. HEENT: The patient is intubated. No periorbital edema. NECK: Supple. No lymphadenopathy. CHEST: Rhonchi bilaterally. CARDIOVASCULAR: Regular rate and rhythm. No murmurs or rubs heard on auscultation. ABDOMEN: There is a surgical scar. It is soft, nondistended. EXTREMITIES: +3 to 4 pitting edema. No clubbing. No cyanosis. : No Narvaez catheter. EXTREMITIES: Skin changes consistent with chronic venous stasis. NEUROLOGIC: Currently, the patient is intubated and sedated. Pupils are equally round and reactive to light and accommodation. LABORATORY DATA: The patient's troponin I 0.016, 0.05, and 0.145 respectively. Sodium is 141, potassium 2.8, BUN 45, creatinine is 3.94, glucose is 84, lactic acid 1.8 and 1.5 respectively. AST 64, ALT 36, alkaline phosphatase 177. Ammonia level is 146. Lipase is 0.5, albumin 2.4, total protein 6.9. ASSESSMENT AND PLAN: 1. Status post cardiopulmonary arrest. Continue hemodynamic monitoring in the ICU. Continue on norepinephrine for BP support. 2. Shock/hypotension/leukocytosis. Continue on pressor and IV antibiotic. 3. Anasarca/hypokalemia. Monitor intake and output and replace electrolytes as needed. 4. Obtain echocardiogram to evaluate valve and LV function. 5. We will continue to evaluate the patient for further need of any cardiac intervention. We will continue to follow. Thank you for this consultation. Dictated by Gia Tanner NP MD SHAJI Gomez/NYLA /[id number]
[2020-01-30] MEDS: FAMOTIDINE 20 MG/2 ML VIAL IV SCH (23:22)
[2020-01-30] MEDS: NOREPINEPHRINE INJ 4MG/4ML 16 MG in DEXTROSE 5% 250ML 250 ML IV SCH (23:23)
[2020-01-31] VITALS (60 sets, daily range): BP systolic 91–144; BP diastolic 29–79
--- NOTE | 2020-01-31 01:17 | Diagnostic Imaging Report ---
Exam: Limited abdominal film film Clinical History: NG tube placement Comparison: Portable chest 01/30/2020 DISCUSSION: See impression. IMPRESSION: 1. Endotracheal tube noted below the left hemidiaphragm, with distal tip projecting in the region of the stomach antrum. 2. Visualized abdomen shows a nonobstructive bowel gas pattern. The staff physician below has personally reviewed this exam on the date of dictation. Signed by: Dr. Austin Fontanez M.D. on 01/31/2020 1:14 AM
[2020-01-31] MEDS: OCTREOTIDE ACETATE 0.1 MG/ML 100MCG AMP SQ SCH ×3 (01:40→17:18)
[2020-01-31] MEDS: ALBUMIN 25% 25GM 100ML 100 ML IV SCH ×2 (01:40→09:57)
[2020-01-31 05:16] LABS: BASOPHILS # (AUTO) 0.1 (0.0-0.1); BASOPHILS % 0.3 % (0.0-1.0); EOSINOPHILS % 0.2 % (0.0-6.0); HEMATOCRIT 30.5 % (38.2-49.6); HEMOGLOBIN 10.3 g/dL (14.0-18.0); LYMPHOCYTES # (AUTO) 0.9 (1.0-3.2); LYMPHOCYTES % 5.2 % (18.0-39.1); MEAN CORPUSCULAR HEMOGLOBIN 32.1 pg (28-32); MEAN CORPUSCULAR HGB CONC 33.8 g/dL (31-35); MONOCYTES % 5.6 % (4.4-11.3); NEUTROPHILS # (AUTO) 15.1 (2.1-6.9); NEUTROPHILS % 87.1 % (38.7-80.0); PLATELET COUNT 117 x10e3/uL (140-360); RED BLOOD COUNT 3.21 x10e6/uL (4.3-5.7); RED CELL DISTRIBUTION WIDTH 16.6 % (11.7-14.4)
[2020-01-31 05:58] LABS: ALBUMIN 3.1 g/dL (3.5-5.0); ALBUMIN/GLOBULIN RATIO 0.9 (0.8-2.0); ANION GAP 17.2 mmol/L (8-16); CALCIUM 8.1 mg/dL (8.4-10.2); CREATININE, SERUM 4.56 mg/dL (0.72-1.25); PHOSPHORUS 4.3 MG/DL (2.3-4.7); POTASSIUM 3.2 mmol/L (3.5-5.1)
[2020-01-31] MEDS: LEVOTHYROXINE SODIUM 75 MCG TAB PO SCH (06:00)
[2020-01-31] MEDS ORDERED: DEXTROSE 50% SYRINGE 50 ML IV ONE ×2 (06:30→18:02)
--- NOTE | 2020-01-31 07:15 | NUR ---
Pt's blood sugar 57,potassium 3.2, receive an order for 1 amp of d50, and Tube feed @20mL/hr. last blood sugar is 101, report given to the oncoming RN.
[2020-01-31] MEDS: POTASSIUM CHLORIDE 10MEQ EA PO SCH (09:57)
[2020-01-31] MEDS: FINASTERIDE 5 MG TAB PO SCH (09:57)
[2020-01-31] MEDS: FAMOTIDINE 20 MG/2 ML VIAL IV SCH ×2 (09:57→20:28)
[2020-01-31] MEDS: TAMSULOSIN HCL 0.4 MG CAP PO SCH (09:57)
--- NOTE | 2020-01-31 11:49 | Progress Note ---
DATE: SUBJECTIVE: The patient is seen and evaluated. Discussed with son. Discussed with granddaughter present in the room. Discussed with the nursing staff. REVIEW OF SYSTEMS: The patient is orally intubated. Unable to obtain review of systems. PHYSICAL EXAMINATION: VITAL SIGNS: Temperature 97.8, pulse 89, respiration 20, blood pressure 127/39. GENERAL: Orally intubated with Narvaez cath, which was placed by Urology using a cystoscopy and with some hematuria. The patient with a nasogastric tube. CV: S1-S2. CHEST: Equal expansion, decreased breath sounds. ABDOMEN: Soft. HEENT: Moist. No pale. MEDICATIONS: List reviewed. From ID point of view patient is on meropenem and had a dose of vancomycin IV. The patient with renal insufficiency, creatinine of 4.56. MICROBIOLOGY: Blood culture negative 24 hours. RADIOLOGY STUDIES: KUB was done this morning and shows endotracheal tube noted below the left hemidiaphragm with distal tip projecting in the region of the stomach, antrum. LABORATORY STUDIES: White blood cells 17.27, improved from 25.28, hemoglobin 10.3, platelet 117 dropping from 160. Sodium 140, potassium 3.2, creatinine 4.56, AST 133, ALT 62, ALP 133, total protein over 6.4. ASSESSMENT AND PLAN: 1. Sepsis on admission. 2. Respiratory failure. 3. Status post cardiopulmonary arrest. 4. Electrolyte abnormalities. 5. LFT especially AST and ALT doubled in 24 hours. Currently with Merrem, the patient had a dose of vancomycin with renal failure. 6. Multiorgan failure. 7. Hypotension, shock. 8. Overall very ill. Further management of this patient is based on daily findings on laboratory and physical examination. Overall, very ill and I believe son aware now the depth of the patient's illness. Discussed with Dr. Paul. Please refer to chart for more information. Dictated by Garfield Pinedo PA-C (Al) Miranda Paul MD /MODL /[id number]
--- NOTE | 2020-01-31 11:51 | Diagnostic Imaging Report ---
EXAM: Abdomen Radiograph INDICATION: NEW NGT placmeent, previous NGT removed COMPARISON: None FINDINGS: TUBES and LINES: There is NG tube in place with distal tip in the stomach. Temperature probe and a tube overlying the mid pelvis. LOWER CHEST: No abnormalities in the lower chest. ABDOMEN: The bowel loops are unremarkable with no dilatation or signs of obstruction. No pneumoperitoneum. No abnormal abdominal calcifications. BONES AND SOFT TISSUES: No acute osseous lesion. Soft tissues are unremarkable. IMPRESSION: NG tube in place with distal tip in the stomach. Signed by: Garfield Stewart MD on 01/31/2020 11:48 AM
[2020-01-31] MEDS: NOREPINEPHRINE INJ 4MG/4ML 16 MG in DEXTROSE 5% 250ML 250 ML IV SCH (12:00)
[2020-01-31] MEDS ORDERED: FUROSEMIDE INJ 10 MG/ML 4 ML VIAL IV NR (13:00)
[2020-01-31] MEDS ORDERED: POTASSIUM CHLORIDE 20MEQ/100ML 100 ML IV ONE (13:00)
[2020-01-31] MEDS: MEROPENEM 1GM 100 ML IV SCH (14:05)
--- NOTE | 2020-01-31 15:35 | Progress Note ---
DATE: SUBJECTIVE: The patient is now on a mechanical ventilator. He is on a PRVC. He has had no urine output. He continues to be obtunded. He is requiring levophed at 5 mcg. PHYSICAL EXAMINATION: VITAL SIGNS: The blood pressure is 121/42 and the saturation is 100%. The pulse is 83. The patient is afebrile. CARDIAC: Reveals regular rate and rhythm with normal S1 and S2. LUNGS: Auscultation of lungs reveals decreased breath sounds at the bases. No wheezing. ABDOMEN: Soft and nontender. There is no rebound or guarding. EXTREMITIES: Shows 3+ leg edema. LABORATORY DATA: White blood cell count is 17.2 and the hemoglobin is 10.3. The platelet count is 117. The BUN to creatinine ratio is 48 to 4.54. Carbon dioxide is 17 and the chloride is 109. Glucose is 53 and the total bilirubin is 2.2. IMPRESSION: 1. Acute respiratory failure. 2. Septic shock with unclear source, present on admission. 3. Cirrhosis with portal hypertension. 4. Acute renal failure. 5. Hepatorenal syndrome type 1. 6. Hepatic encephalopathy. 7. Coagulopathy. PLAN: 1. Continue current antibiotics and await culture results. 2. Continue to wean Levophed. 3. Continue mechanical ventilation. 4. Continue current hepatic regimen including octreotide and albumin. 5. Wean Levophed as tolerated. 6. Case discussed with nursing, Respiratory, Nephrology, Internal Medicine, and family. Case also discussed with administration. 7. Prognosis is very poor. The family will consider withdrawal. The patient is DNR at this time. Greater than 35 minutes in direct critical care time. MD NEELAM Santana/NYLA /[id number]
--- NOTE | 2020-01-31 15:50 | NUR ---
Nutrition Intervention Note RD Recommendation(s) for Physician: - Continue Vital AF 1.2. Recommend increasing goal rate to 65 mL/hr when medically appropriate (provides 1872 kcal, 117 g protein, and 1265 mL water) -Fluid management per MD Plan of Care: RD following, monitoring for tolerance and adequacy, tube feed recommendation Nutrition reason for involvement: enteral nutrition RD Assessment (01/31/20) Pt is a 64 year old male admitted with severe sepsis. Pt is currently intubated. Pt discussed with RN. Pt is not on dialysis at this time and tube feeding will be started today. Unable to obtain nutrition history and there are no previous weights in chart. Recommendations provided. Will continue to monitor. Principal Problems/Diagnoses: severe sepsis PMH: HTN, cirrhosis, hypothyroid, BPH, CKD GI: puffy, firm, ascitic abdomen Skin: sacral wound Labs: (01/31/20) Na 140, K 3.2, BUN 48, Cr 4.56, Glu 53, Ca 8.1, Phos 4.3, Total Bili 2.2, AST 133, ALT 62 Meds: octeotride, KCl, norepinephrine, levothyroxine, vasopressin, antibiotic, zofran, hydralazine Ht: 72 inches Wt: 234 lbs BMI: 31.7 kg/m2 IBW: 178 lbs Malnutrition Evaluation (01/31/20) Unable to assess. Will re-evaluate at follow-up as appropriate. Nutrition Prescription (Diet Order): Vital AF 1.2 @ 20 mL/hr Estimated Nutritional Needs: [id number] calories/day (22-25 kcal/kg IBW) 121-162 g protein/day (1.5-2 g/kg IBW) Diet Adequacy Not meeting calorie needs, Not meeting protein needs Tolerance: Tolerance pending Diet Education Needs Assessment: Diet education not indicated, patient on temporary/transition diet. Nutrition Care Level: moderate Nutrition Diagnosis: Inadequate oral intake related to acute respiratory failure/mechanical ventilation as evidenced by pt requiring enteral nutrition. Goal: Patient will meet 75-100% of estimated needs by follow up Progress: N/A Interventions: Composition, Rate, Route, Collaboration with other providers Monitoring/Evaluation: -Total energy intake, Total protein intake, Formula/Solution, Weight change Signed: Trina Dorsey RD, ABY
[2020-01-31] MEDS: DEXTROSE 50% SYRINGE 50 ML IV PRN ×2 (18:00→18:38)
[2020-02-01] VITALS (23 sets, daily range): BP systolic 73–159; BP diastolic 35–73
[2020-02-01] MEDS: OCTREOTIDE ACETATE 0.1 MG/ML 100MCG AMP SQ SCH ×3 (02:00→18:00)
[2020-02-01] MEDS: LEVOTHYROXINE SODIUM 75 MCG TAB PO SCH (06:00)
[2020-02-01 06:32] LABS: IRON 54 ug/dL (65-175); TRANSFERRIN < 70 mg/dL (174-364)
[2020-02-01 06:35] LABS: CREATININE, SERUM 5.14 mg/dL (0.72-1.25); MAGNESIUM 2.1 MG/DL (1.3-2.1)
[2020-02-01 07:17] LABS: BASOPHILS % 0.3 % (0.0-1.0); EOSINOPHILS % 0.1 % (0.0-6.0); HEMATOCRIT 34.2 % (38.2-49.6); HEMOGLOBIN 11.3 g/dL (14.0-18.0); LYMPHOCYTES # (AUTO) 0.7 (1.0-3.2); LYMPHOCYTES % 5.4 % (18.0-39.1); MEAN CORPUSCULAR HEMOGLOBIN 31.7 pg (28-32); MEAN CORPUSCULAR VOLUME 95.8 fL (81-99); MONOCYTES # (AUTO) 0.9 (0.2-0.8); MONOCYTES % 6.5 % (4.4-11.3); NEUTROPHILS # (AUTO) 11.7 (2.1-6.9); NEUTROPHILS % 85.4 % (38.7-80.0); RED BLOOD COUNT 3.57 x10e6/uL (4.3-5.7); RED CELL DISTRIBUTION WIDTH 16.9 % (11.7-14.4)
[2020-02-01] MEDS: MIDODRINE 2.5 MG TAB PO SCH ×4 (07:31→15:43)
[2020-02-01 07:38] LABS: PLATELET COUNT 85 x10e3/uL (140-360)
--- NOTE | 2020-02-01 07:40 | NUR ---
Pt last blood sugar was 23. dextrose 50 given. last blood glucose is 70. report given to oncoming RN. pt resting will continue to monitor
[2020-02-01 07:44] LABS: FERRITIN 5364.09 ng/mL (21.81-274.66)
[2020-02-01] MEDS ORDERED: DEXTROSE 10% 1,000 ML IV SCH (07:45)
--- NOTE | 2020-02-01 08:39 | NUR ---
Met w/ Bobo Ortiz ACID EXTRACTOR and discussed pt status. Pt has multiorgan failure and glucose of 14 this morning. Family discussing possible withdrawal.
[2020-02-01] MEDS ORDERED: POTASSIUM CHLORIDE 20MEQ/15ML UDC NG SCH (09:00)
[2020-02-01] MEDS: FAMOTIDINE 20 MG/2 ML VIAL IV SCH (09:16)
[2020-02-01] MEDS ORDERED: MORPHINE SULFATE 2 MG/ML SYR 1ML IV PRN (11:15)
--- NOTE | 2020-02-01 11:38 | Progress Note ---
DATE: Pulmonary Critical Care Progress Note SUBJECTIVE: The patient still is not urinating. His blood sugars have been low. He required D50 twice and has been started on a D10 drip. He remains on a mechanical ventilator with a PRVC mode of ventilation. PHYSICAL EXAMINATION: VITAL SIGNS: The blood pressure is 108/70, saturation is 100%, and the respiratory rate is 31 on PRVC. His FiO2 is set at 45%. His PEEP is set at 5. HEENT: Shows no facial swelling or erythema. There is an oral endotracheal tube. There is a right IJ line. The site looks clean. CARDIAC: Reveals regular rate and rhythm with normal S1 and S2. LUNGS: Auscultation of lungs reveals rhonchorous breath sounds bilaterally. There is no wheezing. ABDOMEN: Soft and nontender. There is no rebound or guarding. EXTREMITIES: Shows no leg edema or calf tenderness. There is no cyanosis or clubbing. SKIN: Shows no rashes. NEUROLOGICAL: Shows no focal abnormalities. IMPRESSION: 1. Acute renal failure. 2. Acute respiratory failure. 3. Hepatorenal syndrome type 1. 4. Cirrhosis and portal hypertension. 5. Hepatic encephalopathy. 6. Coagulopathy. 7. Septic shock with unclear source, present on admission. PLAN: 1. After discussion with the son, the daughter, and the , the family has opted for withdrawal of life support. 2. We will remove the endotracheal tube and give pain medications as needed. 3. Continue D5 and antibiotics. 4. Prognosis is poor. 5. Case discussed with family, Internal Medicine, nursing, Respiratory, and administration. Greater than 35 minutes in direct critical care time. Homero Shields MD [facility]/MODL /[id number]
--- NOTE | 2020-02-01 11:50 | NUR ---
Dr Shields at bedside with patient and patient family. Decision reached at this time to withdraw care per patient's and patient' son. Patient extubated at this time, nasal cannula applied. Family at bedside. Notified attending MD, commercial pest control representative, and anesthesia assistant at this time. Orders received for consult to palliative care and pain medication for comfort. Orders carried out.
[2020-02-01] MEDS: MEROPENEM 1GM 100 ML IV SCH (14:00)
[2020-02-01] MEDS: NOREPINEPHRINE INJ 4MG/4ML 16 MG in DEXTROSE 5% 250ML 250 ML IV SCH (15:43)
--- NOTE | 2020-02-01 17:15 | NUR ---
Dr Shields called regarding stopping meds due to palliative care. Per MD, okay to stop all meds except D10. Blood sugar checked at this time, Dr Shields made aware of result of 35mg/dl, orders received to increase rate of D10 to 75cc/hr.
--- NOTE | 2020-02-01 18:14 | NUR ---
Dr Shields called to clarify palliative care consult orders per palliative consult's request. Dr Shields to call Dr Ramirez regarding hospice choice and will return call. Palliative consult made aware. Family made aware, seems amenable to hospice at this time. Addendum: 02/01/20 at 1822 by Aleah Bright RN Dr Shields called to clarify palliative care consult orders per [facility] request. Dr Shields to call Dr Ramirez regarding hospice choice and will return call. Stefania made aware of situation. Family made aware, seems amenable to hospice at this time.
--- NOTE | 2020-02-02 01:13 | NUR ---
PATIENT PRONOUNCED AT 2100. FAMILY AND ATTENDING PHYSICIAN AWARE
--- NOTE | 2020-02-02 09:42 | Discharge Summary ---
DATE OF SERVICE AND DATE OF : 02/01/2020. PRIMARY CARE PHYSICIAN: Not listed. CONSULTING PHYSICIANS: 1. Heri Bella MD with Nephrology. 2. Bernabe Alejandro MD with Urology. 3. Homero Shields MD with Pulmonology/Critical Care Medicine. 4. Sam Shields MD with Cardiology. 5. Javi Wilson MD with Gastroenterology. CHIEF COMPLAINT: Falls, poor oral intake. HISTORY OF PRESENT ILLNESS: Mr. Thakur was a 64-year-old male, who admitted from home due to falls and poor oral intake according to the Emergency Department report. Upon arrival to the floor, the patient was hypotensive, so Levophed was started and patient transferred to ICU and in the ICU, the patient coded, pulse was lost and the patient was intubated. PAST MEDICAL HISTORY: Included liver cancer, cirrhosis, chronic kidney disease stage 4, hypertension, hypothyroidism and BPH. PAST SURGICAL HISTORY: Partial liver resection and hernia repair. FAMILY HISTORY: Unable to assess. SOCIAL HISTORY: Unable to assess. Per Dr. Mortensen's note, emergency room physician, the patient was brought in with frequent falls and rib pain via [facility]. Per her note admitting diagnoses included septic shock, suspected intraabdominal source, SIRS with WBC about 25,000, organ dysfunction, specifically MAG with creatinine 3.67. The patient was given 30 mL/kg IV bolus by ideal body weight about 2 L. The patient markedly emaciated and third-spacing fluid, true dry body weight about 140 pounds or 64 kg. Bedside volume reassessment done with minimal improvement noted. The patient's son was informed of high likelihood of mortality at that time by Dr. Mortensen. ADMITTING DIAGNOSES: 1. Cardiac arrest with respiratory failure. 2. Liver cancer with cirrhosis. 3. Chronic kidney disease 4. 4. Hypertension with chronic kidney disease 4. 5. Septic shock, source unknown. 6. Bilateral pleural effusions. 7. Hypothyroidism. 8. Benign prostatic hypertrophy with urinary retention. FINAL DIAGNOSES: 1. Multi-system organ failure, status post cardiopulmonary arrest, . 2. Liver cancer with history of resection without radiation or chemotherapy, cirrhosis, anasarca, portal hypertension, coagulopathy. 3. Acute kidney injury on chronic kidney disease, hepatorenal syndrome type 1. 4. Septic shock. 5. Altered mental status; hepatic and metabolic encephalopathy. 6. Acute respiratory failure on mechanical ventilation, bilateral pleural effusions. 7. Hypertension with chronic kidney disease, now hypotensive due to shock. 8. Benign prostatic hypertrophy with urinary retention, status post cystoscopy on 01/30/[address] for Narvae[address] Dr[address] Alejandro. 9. Hypothyroidism, on 01/29/2020 at 20:14, blood pressure low at 53/23, heart rate 69. The patient is on non-rebreather mask. Levophed drip 5 mcg/hour. Blood pressure improved to 108/37 with a MAP of 58, heart rate 75, and he was transferred from the floor to the ICU. Per documentation, he had a Code Blue called at 3:10 a.m. on 01/30/2020 and brought it down to [facility]. Pulse was obtained between 3:11 and 3:13 a.m. Levophed was increased to 30 mcg, was given etomidate, Versed, succinylcholine, intubated. Echocardiogram done on 01/30/2020 showed estimated ejection fraction of 50% to 55% with left pleural effusion 9.8 cm. On admission, WBC is 24.38, hemoglobin 10.1, hematocrit 31.6. Potassium level 2.1, BUN 42, creatinine 3.67, estimated GFR 17, total bilirubin 1.2, AST 48, ALT 30, alkaline phosphatase 144, CK-MB 56.3. Initial lactic acid 1.5 and later 1.8. Coronavirus by PCR was not detected on 01/29/2020. Clostridium difficile toxin was negative. Initial chest x-ray showed bibasilar patchy opacities, more likely subsegmental atelectasis than superimposed aspiration or pneumonia. The CT of the abdomen and pelvis showed mild patchy ground-glass opacities bilaterally, could be infectious or atelectatic, small bowel containing left paraumbilical hernia. No evidence of bowel obstruction. Results from CT of the chest and CT of the brain showed no acute intracranial abnormalities. There was mild supratentorial chronic microvascular ischemic change. Abdominal ultrasound on 01/30/2020 showed diffusely coarsened heterogeneous hepatic echotexture with numerous hypodense lesions. Throughout the liver in the setting of cirrhosis, findings are concerning for hepatic malignancy, nonvisualization of the gallbladder, small volume ascites. The patient's total bilirubin increased to 2.2. The patient was on Merrem and Levophed drip for sepsis despite being on ventilatory support and aggressive treatment, he did not improve. His urinary output was only 100 mL for a whole shift on 01/31/2020, hypokalemia, improved 3.2. On the , he was on PRVC 18, FiO2 of 40%, tidal volume 400, PEEP of 8, peak pressure 25, BUN 48, creatinine 4.56, glucose low at 53, WBCs 17.2, hemoglobin 10.3, neutrophils 87.1. AST 133, ALT 62, alkaline phosphatase 133. In the course of events, the decision was made by the family to make the patient DNR. The patient remained noncommunicative on 02/01/2020. Serum CO2 11, BUN 51, creatinine 5.14, estimated GFR 11, potassium for 4.0. WBCs 13.71, hemoglobin 11.3, platelets 85, anion gap 23. Hepatitis panel remained pending per documentation by Dr. Wilson with Gastroenterology. MRI with liver mass protocol and possibility of liver biopsy would be the next step; however, this is not possible due to the patient being so critical. He was on octreotide and albumin for hepatorenal syndrome. Midodrine had been added to the Levophed. On 02/01/2020, the family decided to withdraw care and the patient was terminally extubated. Dr. Ramirez and Dr. Homero Shields spoke with the family. His Levophed drip was stopped and after extubation, palliative care measures were introduced with all medications stopped except for D10 drip, D50 p.r.n., p.r.n. morphine sulfate, and p.r.n. Zofran. Order was entered for Case Management to contact hospice; however, the patient did not survive and time for the hospice evaluation at 1800 hours is vital signs were temperature 95.6, heart rate 70, respirations 23, blood pressure 94/60, oxygen saturation 70% on 2 L of oxygen via nasal cannula. Time of was pronounced by Dr. Mortensen, emergency department physician at 2100 hours on 02/01/2020. Dictated by Bobo Ortiz NP Camacho Ramirez MD HWP/MODL /[id number]
--- NOTE | 2020-02-05 02:22 | Consultation ---
DATE OF CONSULTATION: 01/30/2020 Urology Consultation REASON FOR CONSULTATION: Inability to get in a Narvaez catheter and urinary retention. HISTORY OF PRESENT ILLNESS: Eliel Thakur is a very complicated 64-year-old man, who was brought to the hospital due to falls and poor appetite. He began hypotensive, was intubated, placed in the ICU. The nurses bladder scanned the patient's lower abdomen and they found him to be in urinary retention for 400 mL. There were unable to place a Narvaez catheter and urological consultation was sought. The patient has a complex history. The patient is intubated and cannot give any history. All information is obtained from review of the patient's chart and discussion with the nurses. Apparently, there is a history of BPH as well as renal insufficiency. PAST MEDICAL AND SURGICAL HISTORY: 1. Liver cancer, status post partial liver resection. 2. Status post hernia repair. 3. Cirrhosis. 4. Chronic renal insufficiency. 5. Hypertension. 6. Hypothyroidism. FAMILY HISTORY: Noncontributory to the active urological problems. SOCIAL HISTORY: Unable to assess. ALLERGIES: NONE KNOWN. CURRENT MEDICATIONS: Please refer the MAR. REVIEW OF SYSTEMS: Believed to be consistent with the above history of present illness, past medical history, otherwise is believed to be unremarkable. PHYSICAL EXAMINATION: GENERAL: Intubated and sedated man, lying in bed. VITAL SIGNS: Relatively stable with the current management. ABDOMEN: Obese. It is soft. It seems distended. He has a midline scar as well as a right subcostal scar. It is difficult to discern urinary retention. GENITOURINARY: There is anasarca of the lower abdomen as well as legs as well as the genitalia. The patient has secondary phimosis. I am able to get a finger into the phimotic foreskin and I can feel the glans penis, but it is rather deep over an inch and half to 2 inches away from the tip of the foreskin. It is completely buried. It is difficult to discern testes in his edema latent of the scrotal skin. For the remaining physical examination and review of systems, please refer to the admission history and physical in chart. LABORATORY STUDIES: Blood cultures are pending. White blood cell count 25,280, hemoglobin 11.2, platelets 160,000. The patient's creatinine is 3.67, potassium is low at 2.1, calcium is low at 7.6. PT is elevated at 22.7 with an INR of 1.85. The repeat show a 21.7 of PT, INR of 1.75, and PTT of 57.7. CT scan of the abdomen and pelvis performed by the emergency room revealed no hydronephrosis and an unremarkable bladder. With non-urological findings, I defer to the admitting physician. PROCEDURE NOTE: I prepared the patient's inner foreskin and glans penis with Betadine swabs and then prepared and draped the penis normally. Utilizing a catheter guide, I was unable to place Narvaez catheter. We brought the flexible cystoscope and placed and did a cystoscopy of the spermatic region. With this, we were able to negotiate the cystoscope to the urethral meatus. We placed the cystoscope into the urethral meatus and then encountered a fossa navicularis dense stricture. We placed a guidewire. We then utilized followers to dilate across the strictures to 18-Tamazight in size. Utilizing a catheter guide over the guidewire, we were able to negotiate a 16-Tamazight Ewiiaapaayp tip Narvaez catheter, inserted into the patient's bladder. There was only minimal amount of urine present. We irrigated the catheter to and fro to ensure it worked properly. It seemed to be in the appropriate position. It appears that the urinary retention was probably a reading of ascites fluid in a patient with cirrhosis. There were no complications to procedure. Bleeding was minimal. ASSESSMENT: 1. Severe urethral stricture disease, status post cystoscopy and urethral dilation at the bedside. 2. Phimosis, making Narvaez catheterization difficult and near-impossible. 3. Acute on chronic renal failure. 4. Urinary retention disproven. 5. Severe penoscrotal edema. 6. Coagulopathy. 7. Hypokalemia. 8. Leukocytosis. 9. Anemia. 10. Benign prostatic hyperplasia. 11. Obesity. 12. Hypocalcemia. PLANS: 1. Do not remove the Narvaez catheter. 2. I defer the hematological and electrolyte abnormalities to the primary team. 3. Defer renal function to the renal service now that we know the patient has no hydronephrosis and has a functional catheter. 4. My overall assessment of the patient's medical condition is that his prognosis is extremely poor, yet my role is finished now that the patient is catheterized before the consultation date and should the patient survive this grave condition, I would be happy to work on the Narvaez from urological standpoint and manage his stricture long-term as well as his phimosis. Thank you much for involving us in the care of your patient. We will be happy to follow him as needed. MD MARY GRACE Acosta/NYLA /[id number]
== END 2020-02-02 02:30 | disposition expired | DRG 871 ==
LOC: ER 08:42 → ERHOLD 12:46 → MED/SURG3 15:02 → ICU 22:26
PROVIDERS: ADMIT Internal Medicine; ATTEND Internal Medicine
PROC: 5A1945Z Respiratory Ventilation, 24-96 Consecutive Hours (ICD-10-PCS; principal; 2020-01-29)
PROC: 0BH17EZ Insertion of Endotracheal Airway into Trachea, Via Natural or Artificial Opening (ICD-10-PCS; 2020-01-29)
PROC: 02HV33Z Insertion of Infusion Device into Superior Vena Cava, Percutaneous Approach (ICD-10-PCS; 2020-01-29)
PROC: B548ZZA Ultrasonography of Superior Vena Cava, Guidance (ICD-10-PCS; 2020-01-29)
DX: A41.9 Sepsis, unspecified organism (principal); R65.21 Severe sepsis with septic shock; K76.7 Hepatorenal syndrome; G93.41 Metabolic encephalopathy; J96.90 Respiratory failure, unspecified, unspecified whether with hypoxia or hypercapnia; N17.9 Acute kidney failure, unspecified; N18.4 Chronic kidney disease, stage 4 (severe); Z85.05 Personal history of malignant neoplasm of liver; I12.9 Hypertensive chronic kidney disease with stage 1 through stage 4 chronic kidney disease, or unspecified chronic kidney disease; K72.90 Hepatic failure, unspecified without coma
CPT/HCPCS: 36415; 70450; 71045; 71250; 74018; 74176; 76700; 80048; 80053; 82105; 82140; 82550; 82553; 82607; 82728; 82746; 82948; 83540; 83605; 83690; 83735; 84100; 84132; 84443; 84466; 84484; 85025; 85045; 85610; 85730; 86900; 87040; 87493; 87635; 93306; 94002; 94003; 99285; J0692; J1940; J2001; J2060; J2270; J2354; J2405; J2543; J2550; J3370; J3480; J7030; J7040; J7799; P9047